=== PATIENT | female | born 1965 | race Caucasian/White ===

== ENCOUNTER 2018-07-10 00:02 | Emergency (ER) | payer OTHER ==
[~2018-07-10] VITALS: Ht 170.2 cm; Wt 80.3 kg
--- NOTE | 2018-07-10 00:06 | ED.ADGEN ---
Adult General Chief Complaint Chief Complaint ".. I was just watching TV... and got this really bad pain in my stomach.. and chest..." HPI HPI Patient is a 52 year old female who presents with above hx and complaints epigastric and right upper quadrant pain. Has rebound to epigastric area. No psoas sign. Patient did have some high fat meals today consisting of quiche and pizza at 2100 hrs. a previous history of gallbladder disease. No previous history of gastritis or irritable bowel. She denies any history of dark or tarry stools. No history of travel. No history of specific ill contacts. Review of Systems Review of Systems Constitutional: Denies fever or chills [] Eyes: Denies change in visual acuity, redness, or eye pain [] HENT: Denies nasal congestion or sore throat [] Respiratory: Denies cough or shortness of breath [] Cardiovascular: No additional information not addressed in HPI [] GI: Complaints of epigastric abdominal pain, nausea,. Denies vomiting, bloody stools or diarrhea [] : Denies dysuria or hematuria [] Musculoskeletal: Denies back pain or joint pain [] Integument: Denies rash or skin lesions [] Neurologic: Denies headache, focal weakness or sensory changes [] Endocrine: Denies polyuria or polydipsia [] All other systems were reviewed and found to be within normal limits, except as documented in this note. Family History Family History Noncontributory Current Medications Current Medications Current Medications Medications (Trade) Dose Ordered Sig/Cong Start Time Stop Time Status Last Admin Dose Admin Cephalexin HCl (Keflex) 250 mg STK-MED ONCE 07/10/18 05:24 07/10/18 05:39 DC Famotidine (Pepcid Vial) 20 mg 1X ONCE 07/10/18 00:45 07/10/18 00:46 DC 07/10/18 00:56 20 MG Info (Do NOT chart on this entry -- for MONITORING) 1 each PRN DAILY PRN 07/10/18 02:00 07/10/18 05:39 DC Iohexol (Omnipaque 240 Mg/ml) 30 ml 1X ONCE 07/10/18 01:45 07/10/18 01:48 DC 07/10/18 03:41 30 ML Iohexol (Omnipaque 300 Mg/ml) 75 ml 1X ONCE 07/10/18 01:45 07/10/18 01:48 DC 07/10/18 03:40 75 ML Ketorolac Tromethamine (Toradol 30mg Vial) 30 mg 1X ONCE 07/10/18 00:45 07/10/18 00:46 DC 07/10/18 00:45 30 MG Lactated Ringer's 1,000 ml @ 1,000 mls/hr Q1H 07/10/18 00:30 07/10/18 01:29 DC 07/10/18 00:56 1,000 MLS/HR Magnesium Hydroxide (Milk Of Magnesia) 2,400 mg 1X ONCE 07/10/18 00:45 07/10/18 00:46 DC 07/10/18 00:56 2,400 MG Morphine Sulfate (Morphine 10mg Syringe) 10 mg 1X ONCE 07/10/18 00:45 07/10/18 00:46 DC Ondansetron HCl (Zofran) 8 mg 1X ONCE 07/10/18 00:45 07/10/18 00:46 DC 07/10/18 00:56 8 MG Allergies Allergies Allergies Coded Allergies Type Severity Reaction Last Updated Verified No Known Drug Allergies 07/10/18 No Physical Exam Physical Exam Constitutional: Moderately acute distress, non-toxic appearance. [] HENT: Normocephalic, atraumatic, bilateral external ears normal, oropharynx moist, no oral exudates, nose normal. [] Eyes: PERRLA, EOMI, conjunctiva normal, no discharge. [] Neck: Normal range of motion, no tenderness, supple, no stridor. [] Cardiovascular: Tachycardia Heart rate regular rhythm, no murmur [] Lungs & Thorax: Bilateral breath sounds clear to auscultation [] Abdomen: Bowel sounds decreased, soft, epigastric and right upper quadrant tenderness, no masses, no pulsatile masses. [] Skin: Warm, dry, no erythema, no rash. [] Back: No tenderness, no CVA tenderness. [] Extremities: No tenderness, no cyanosis, no clubbing, ROM intact, no edema. [] Psoas sign. Negative Neurologic: Alert and oriented X 3, normal motor function, normal sensory function, no focal deficits noted. [] Psychologic: Affect anxious, judgement normal, mood normal. [] Current Patient Data Vital Signs Vital Signs Date Time Temp Pulse Resp B/P (MAP) Pulse Ox O2 Delivery O2 Flow Rate FiO2 07/10/18 04:28 88 20 120/60 (80) 94 Room Air 07/10/18 00:29 97.6 Lab Results Laboratory Tests Test 07/10/18 00:15 07/10/18 00:50 07/10/18 02:10 White Blood Count 6.8 x10^3/uL (4.0-11.0) Red Blood Count 4.74 x10^6/uL (3.50-5.40) Hemoglobin 13.8 g/dL (12.0-15.5) Hematocrit 41.3 % (36.0-47.0) Mean Corpuscular Volume 87 fL (79-100) Mean Corpuscular Hemoglobin 29 pg (25-35) Mean Corpuscular Hemoglobin Concent 33 g/dL (31-37) Red Cell Distribution Width 13.9 % (11.5-14.5) Platelet Count 195 x10^3/uL (140-400) Neutrophils (%) (Auto) 61 % (31-73) Lymphocytes (%) (Auto) 30 % (24-48) Monocytes (%) (Auto) 8 % (0-9) Eosinophils (%) (Auto) 1 % (0-3) Basophils (%) (Auto) 0 % (0-3) Neutrophils # (Auto) 4.2 x10^3uL (1.8-7.7) Lymphocytes # (Auto) 2.0 x10^3/uL (1.0-4.8) Monocytes # (Auto) 0.5 x10^3/uL (0.0-1.1) Eosinophils # (Auto) 0.1 x10^3/uL (0.0-0.7) Basophils # (Auto) 0.0 x10^3/uL (0.0-0.2) Sodium Level 143 mmol/L (136-145) Potassium Level 3.4 mmol/L (3.5-5.1) L Chloride Level 104 mmol/L (98-107) Carbon Dioxide Level 31 mmol/L (21-32) Anion Gap 8 (6-14) Blood Urea Nitrogen 15 mg/dL (7-20) Creatinine 0.9 mg/dL (0.6-1.0) Estimated GFR (Cockcroft-Gault) 66.0 Glucose Level 116 mg/dL (70-99) H Calcium Level 8.8 mg/dL (8.5-10.1) Magnesium Level 1.9 mg/dL (1.8-2.4) Total Bilirubin 0.3 mg/dL (0.2-1.0) Direct Bilirubin 0.1 mg/dL (0.0-0.2) Aspartate Amino Transferase (AST) 33 U/L (15-37) Alanine Aminotransferase (ALT) 39 U/L (14-59) Alkaline Phosphatase 62 U/L (46-116) Creatine Kinase 76 U/L (26-192) Troponin I Quantitative < 0.017 ng/mL (0-0.055) ZY-[id number]-Type Natriuretic Peptide 39 pg/mL (0-124) Total Protein 6.9 g/dL (6.4-8.2) Albumin 3.4 g/dL (3.4-5.0) Amylase Level 43 U/L (25-115) Lipase 298 U/L (73-393) Urine Collection Type Unknown Urine Color Yellow Urine Clarity Clear Urine pH 7.0 Urine Specific [place] 1.020 Urine Protein Neg (NEG-TRACE) Urine Glucose (UA) Neg mg/dL (NEG) Urine Ketones (Stick) Neg mg/dL (NEG) Urine Blood Neg (NEG) Urine Nitrite Neg (NEG) Urine Bilirubin Neg (NEG) Urine Urobilinogen Dipstick 0.2 mg/dL (0.2 mg/dL) Urine Leukocyte Esterase Mod (NEG) Urine RBC Occ /HPF (0-2) Urine WBC 5-10 /HPF (0-4) Urine Squamous Epithelial Cells Few /LPF Urine Bacteria Few /HPF (0-FEW) Urine Mucus Slight /LPF Urine Opiates Screen Neg (NEG) Urine Methadone Screen Neg (NEG) Urine Barbiturates Neg (NEG) Urine Phencyclidine Screen Neg (NEG) Urine Amphetamine/Methamphetamine Neg (NEG) Urine Benzodiazepines Screen Neg (NEG) Urine Cocaine Screen Neg (NEG) Urine Cannabinoids Screen Neg (NEG) Urine Ethyl Alcohol Neg (NEG) Prothrombin Time 10.3 SEC (9.4-11.4) Prothrombin Time INR 1.0 (0.9-1.1) PTT 24 SEC (23-33) D-Dimer (Stefanei) 0.30 mg/L (0.00-0.50) EKG EKG My interpretation EKG shows a sinus rhythm at 93 bpm. Some nonspecific anterior septal changes. No findings acute STEMI of contralateral changes[] Radiology/Procedures Radiology/Procedures My interpretation of abdomen film shows no free air under the diaphragm. Increased stool throughout the colon. Nonobstructive bowel gas pattern. My interpretation CT shows gallstone. And a left adnexal cyst. No clicking of gallbladder wall. Appendix noninflamed. See formal report when available[] Course & Med Decision Making Course & Med Decision Making Pertinent Labs and Imaging studies reviewed. (See chart for details) Patient to stay on a clear fluid diet only for the next 48 hours. No solids or milk products must allow bowel rest. Take Tylenol and ibuprofen for pain. For marked pain may take Vicoprofen. Or hydrocodone up to 4 times a day. Patient take Zantac 150 mg twice a day. Patient take Keflex 500 mg 3 times a day for UTI. Patient follow-up primary care. Return pain outpatient ultrasound study for biliary colic and follow-up left cyst. Return if any concerns. Must follow- up. Avoid high fat diet. [] Final Impression Final Impression 1. Epigastric and Rt. upper quadrant Abd. Pain[] 2. Biliary colic- Gall Stones 3. UTI Dragon Disclaimer Dragon Disclaimer This electronic medical record was generated, in whole or in part, using a voice recognition dictation system. Discharge Summary Visit Information Final Diagnosis Problems Medical Problems: (1) Biliary colic Status: Acute Brief Hospital Course Allergies Allergies Coded Allergies Type Severity Reaction Last Updated Verified No Known Drug Allergies 07/10/18 No Vital Signs Vital Signs Date Time Temp Pulse Resp B/P (MAP) Pulse Ox O2 Delivery O2 Flow Rate FiO2 07/10/18 04:28 88 20 120/60 (80) 94 Room Air 07/10/18 00:29 97.6 Lab Results Laboratory Tests Test 07/10/18 00:15 07/10/18 00:50 07/10/18 02:10 White Blood Count 6.8 x10^3/uL (4.0-11.0) Red Blood Count 4.74 x10^6/uL (3.50-5.40) Hemoglobin 13.8 g/dL (12.0-15.5) Hematocrit 41.3 % (36.0-47.0) Mean Corpuscular Volume 87 fL (79-100) Mean Corpuscular Hemoglobin 29 pg (25-35) Mean Corpuscular Hemoglobin Concent 33 g/dL (31-37) Red Cell Distribution Width 13.9 % (11.5-14.5) Platelet Count 195 x10^3/uL (140-400) Neutrophils (%) (Auto) 61 % (31-73) Lymphocytes (%) (Auto) 30 % (24-48) Monocytes (%) (Auto) 8 % (0-9) Eosinophils (%) (Auto) 1 % (0-3) Basophils (%) (Auto) 0 % (0-3) Neutrophils # (Auto) 4.2 x10^3uL (1.8-7.7) Lymphocytes # (Auto) 2.0 x10^3/uL (1.0-4.8) Monocytes # (Auto) 0.5 x10^3/uL (0.0-1.1) Eosinophils # (Auto) 0.1 x10^3/uL (0.0-0.7) Basophils # (Auto) 0.0 x10^3/uL (0.0-0.2) Sodium Level 143 mmol/L (136-145) Potassium Level 3.4 mmol/L (3.5-5.1) Chloride Level 104 mmol/L (98-107) Carbon Dioxide Level 31 mmol/L (21-32) Anion Gap 8 (6-14) Blood Urea Nitrogen 15 mg/dL (7-20) Creatinine 0.9 mg/dL (0.6-1.0) Estimated GFR (Cockcroft-Gault) 66.0 Glucose Level 116 mg/dL (70-99) Calcium Level 8.8 mg/dL (8.5-10.1) Magnesium Level 1.9 mg/dL (1.8-2.4) Total Bilirubin 0.3 mg/dL (0.2-1.0) Direct Bilirubin 0.1 mg/dL (0.0-0.2) Aspartate Amino Transf (AST/SGOT) 33 U/L (15-37) Alanine Aminotransferase (ALT/SGPT) 39 U/L (14-59) Alkaline Phosphatase 62 U/L (46-116) Creatine Kinase 76 U/L (26-192) Troponin I Quantitative < 0.017 ng/mL (0-0.055) HR-Xdy-N-Type Natriuretic Peptide 39 pg/mL (0-124) Total Protein 6.9 g/dL (6.4-8.2) Albumin 3.4 g/dL (3.4-5.0) Amylase Level 43 U/L (25-115) Lipase 298 U/L (73-393) Urine Collection Type Unknown Urine Color Yellow Urine Clarity Clear Urine pH 7.0 Urine Specific [place] 1.020 Urine Protein Neg (NEG-TRACE) Urine Glucose (UA) Neg mg/dL (NEG) Urine Ketones (Stick) Neg mg/dL (NEG) Urine Blood Neg (NEG) Urine Nitrite Neg (NEG) Urine Bilirubin Neg (NEG) Urine Urobilinogen Dipstick 0.2 mg/dL (0.2 mg/dL) Urine Leukocyte Esterase Mod (NEG) Urine RBC Occ /HPF (0-2) Urine WBC 5-10 /HPF (0-4) Urine Squamous Epithelial Cells Few /LPF Urine Bacteria Few /HPF (0-FEW) Urine Mucus Slight /LPF Urine Opiates Screen Neg (NEG) Urine Methadone Screen Neg (NEG) Urine Barbiturates Neg (NEG) Urine Phencyclidine Screen Neg (NEG) Urine Amphetamine/Methamphetamine Neg (NEG) Urine Benzodiazepines Screen Neg (NEG) Urine Cocaine Screen Neg (NEG) Urine Cannabinoids Screen Neg (NEG) Urine Ethyl Alcohol Neg (NEG) Prothrombin Time 10.3 SEC (9.4-11.4) Prothromb Time International Ratio 1.0 (0.9-1.1) Activated Partial Thromboplast Time 24 SEC (23-33) D-Dimer (Stefanie) 0.30 mg/L (0.00-0.50) Brief Hospital Course Ms. Luevano is a 52 old female who presented with a colic and UTI Discharge Information Condition at Discharge: Improved, Stable Disposition/Orders: D/C to Home Dischare Medications Current Medications Ketorolac Tromethamine (Toradol 30mg Vial) 30 mg STK-MED ONCE .ROUTE ; Start at 00:26; Stop 07/10/18 at 00:27; Status DC Ketorolac Tromethamine (Toradol 30mg Vial) 30 mg 1X ONCE IV Last administered on 07/10/18at 00:45; Admin Dose 30 MG; Start 07/10/18 at 00:45; Stop 07/10/18 at 00:46; Status DC Lactated Ringer's 1,000 ml @ 1,000 mls/hr Q1H IV Last administered on at 00:56; Admin Dose 1,000 MLS/HR; Start 07/10/18 at 00:30; Stop 07/10/18 at 01:29; Status DC Famotidine (Pepcid Vial) 20 mg 1X ONCE IVP Last administered on 07/10/18at 00: 56; Admin Dose 20 MG; Start 07/10/18 at 00:45; Stop 07/10/18 at 00:46; Status DC Morphine Sulfate (Morphine 10mg Syringe) 10 mg 1X ONCE SQ ; Start 07/10/18 at 00:45; Stop 07/10/18 at 00:46; Status DC Ondansetron HCl (Zofran) 8 mg 1X ONCE IV Last administered on 07/10/18at 00:56 ; Admin Dose 8 MG; Start 07/10/18 at 00:45; Stop 07/10/18 at 00:46; Status DC Magnesium Hydroxide (Milk Of Magnesia) 2,400 mg 1X ONCE PO Last administered on 07/10/18at 00:56; Admin Dose 2,400 MG; Start 07/10/18 at 00:45; Stop 07/10/18 at 00:46; Status DC Iohexol (Omnipaque 240 Mg/ml) 30 ml 1X ONCE PO Last administered on 07/10/18at 03:41; Admin Dose 30 ML; Start 07/10/18 at 01:45; Stop 07/10/18 at 01:48; Status DC Iohexol (Omnipaque 300 Mg/ml) 75 ml 1X ONCE IV Last administered on 07/10/18at 03:40; Admin Dose 75 ML; Start 07/10/18 at 01:45; Stop 07/10/18 at 01:48; Status DC Info (Do NOT chart on this entry -- for MONITORING) 1 each PRN DAILY PRN MC SEE COMMENTS; Start 07/10/18 at 02:00; Stop 07/10/18 at 05:39; Status DC Cephalexin HCl (Keflex) 500 mg 1X ONCE PO Last administered on 07/10/18at 05:28 ; Admin Dose 500 MG; Start 07/10/18 at 05:15; Stop 07/10/18 at 05:39; Status DC Cephalexin HCl (Keflex) 250 mg STK-MED ONCE .ROUTE ; Start 07/10/18 at 05:24; Stop 07/10/18 at 05:39; Status DC Active Scripts Active Zantac (Ranitidine Hcl) 150 Mg Tablet 150 Mg PO BID 30 Days Vicodin 5-300 Mg Tablet (Hydrocodone Bit/Acetaminophen) 1 Each Tablet 1 Each PO QIDPRN PRN Keflex (Cephalexin) 500 Mg Capsule 500 Mg PO TID 7 Days Dragon Disclaimer This chart was dictated in whole or in part using Voice Recognition software in a busy, high-work load, and often noisy Emergency Department environment. It may contain unintended and wholly unrecognized errors or omissions. NANDO GARCIA MD Jul 10, 2018 00:06
[2018-07-10] MEDS ORDERED: KETOROLAC 30 MG/ML VIAL. ONE (00:26)
[2018-07-10] MEDS ORDERED: IV RINGERS SOLUTION,LACTATED 1,000 ML IV SCH (00:30)
[2018-07-10] MEDS ORDERED: MAGNESIUM HYDROXIDE 2,400 MG/30 ML ORAL.SUSP. PO ONE (00:45)
[2018-07-10] MEDS ORDERED: KETOROLAC 30 MG/ML VIAL. IV ONE (00:45)
[2018-07-10] MEDS ORDERED: FAMOTIDINE 20 MG/2 ML VIAL IVP ONE (00:45)
[2018-07-10] MEDS ORDERED: ONDANSETRON PF 4 MG/2 ML VIAL. IV ONE (00:45)
[2018-07-10] MEDS ORDERED: MORPHINE SULFATE 10 MG/ML SYRINGE. SQ ONE (00:45)
[2018-07-10 00:48] LABS: BASO % 0 % (0-3); EOS # 0.1 x10^3/uL (0.0-0.7); EOS % 1 % (0-3); HEMATOCRIT 41.3 % (36.0-47.0); HEMOGLOBIN 13.8 g/dL (12.0-15.5); LYMPH % 30 % (24-48); MEAN CORPUSCULAR HEMOGLOBIN 29 pg (25-35); MEAN CORPUSCULAR HGB CONC 33 g/dL (31-37); MEAN CORPUSCULAR VOLUME 87 fL (79-100); MONO # 0.5 x10^3/uL (0.0-1.1); MONO % 8 % (0-9); NEUT # 4.2 x10^3uL (1.8-7.7); NEUT % 61 % (31-73); PLATELET COUNT 195 x10^3/uL (140-400); RED BLOOD COUNT 4.74 x10^6/uL (3.50-5.40); RED CELL DISTRIBUTION WIDTH 13.9 % (11.5-14.5); WHITE BLOOD COUNT 6.8 x10^3/uL (4.0-11.0)
[2018-07-10 01:00] LABS: ALBUMIN 3.4 g/dL (3.4-5.0); CALCIUM 8.8 mg/dL (8.5-10.1); CREATININE 0.9 mg/dL (0.6-1.0); DIRECT BILIRUBIN 0.1 mg/dL (0.0-0.2); MAGNESIUM 1.9 mg/dL (1.8-2.4); POTASSIUM 3.4 mmol/L (3.5-5.1); TOTAL BILIRUBIN 0.3 mg/dL (0.2-1.0); TOTAL PROTEIN 6.9 g/dL (6.4-8.2)
[2018-07-10 01:23] LABS: BARBITURATES NEG (NEG); BENZODIAZEPINES NEG (NEG); CANNABINOIDS NEG (NEG); COCAINE NEG (NEG); METHADONE NEG (NEG); OPIATES NEG (NEG); PHENCYCLIDINE NEG (NEG)
[2018-07-10 01:27] LABS: AMPHETAMINE/METHAMPHETAMINE NEG (NEG)
[2018-07-10] MEDS ORDERED: IOHEXOL 300 MG/ML 75 ML VIAL. IV ONE (01:45)
[2018-07-10] MEDS ORDERED: IOHEXOL 240 MG/ML 50ML VIAL. PO ONE (01:45)
[2018-07-10 01:58] LABS: BILIRUBIN,URINE NEG (NEG); CLARITY,URINE CLEAR; COLOR,URINE YELLOW; GLUCOSE,URINE NEG (NEG); NITRITE,URINE NEG (NEG); UROBILINOGEN,URINE 0.2 mg/dL (0.2 mg/dL)
[2018-07-10 01:59] LABS: BACTERIA,URINE FEW /HPF (0-FEW); RBC,URINE OCC /HPF (0-2); SQUAMOUS EPITHELIAL CELL,UR FEW /LPF
[2018-07-10] MEDS ORDERED: CONTRAST GIVEN MC PRN (02:00)
--- NOTE | 2018-07-10 04:25 | RAD ---
INDICATION: Omni 300, 75ml IV. Abdominal pain, epigastric pain. Hx ablation COMPARISON: None. TECHNIQUE: Axial CT images obtained through the abdomen and pelvis with contrast. One or more of the following individualized dose reduction techniques were utilized for this examination: 1. Automated exposure control; 2. Adjustment of the mA and/or kV according to patient size; 3. Use of iterative reconstruction technique. FINDINGS: Abdominal aorta not aneurysmal. Gallstone. No peripancreatic fluid collection. Spleen unremarkable. No left-sided hydronephrosis. Minimal urine within the bladder at time of exam. Mild prominence right extrarenal pelvis. Suspected cystic lesion right adnexa measuring up to 29 mm. Colonic diverticulosis is suspected. No periappendiceal inflammation. No dilated loops of bowel to suggest obstruction. Degenerative changes of spine. IMPRESSION: 1. There is suspected gallstone. 2. Suspected cystic lesion right adnexa. If more complete characterization is desired ultrasound could better evaluate. Electronically signed by: Bola Mehta MD (07/10/2018 4:22 AM) [id number]
[2018-07-10 04:28] VITALS: BP 120/60
[2018-07-10] MEDS ORDERED: CEPHALEXIN 250 MG CAPSULE PO ONE (05:15)
[2018-07-10] MEDS ORDERED: HYDR1TAB13 PO (05:21)
[2018-07-10] MEDS ORDERED: RANI150T21 PO (05:21)
[2018-07-10] MEDS ORDERED: CEPH-264 PO (05:21)
[2018-07-10] MEDS ORDERED: CEPHALEXIN 250 MG CAPSULE ONE (05:24)
--- NOTE | 2018-07-10 06:13 | EKG ---
[address] [address] Test Date: 2018-07-10 Test Time: 01:19:09 Pat Name: KAYE BETTS Department: Room: Gender: F Utilization Supervisor: KASI : 1965 Requested By: NANDO GARCIA Order Number: [id number] Reading MD: Mathew Jones MD Measurements Intervals [place] Rate: 93 P: 54 HI: 186 QRS: 61 QRSD: 88 T: 49 QT: 354 QTc: 443 Interpretive Statements SINUS RHYTHM Electronically Signed On 07-15-2018 14:47:44 CDT by Mathew Jones MD
--- NOTE | 2018-07-10 08:16 | RAD ---
Acute Abdominal Series: Technique: PA view of the chest and supine and upright views of the abdomen were obtained. History: Chest and epigastric pain and abdominal pain. Comparison: None. Findings: The lungs and pleural margins are clear. There is air and stool scattered the colon. There is a paucity small bowel gas. There is no free air. Impression: Nonobstructive bowel gas pattern consistent with mild constipation.. Electronically signed by: Nikolai Davis III, MD (07/10/2018 8:13 AM) [facility]
== END 2018-07-10 05:27 | disposition home or self-care (01) ==
LOC: ER 00:02
DX: K80.50 Calculus of bile duct without cholangitis or cholecystitis without obstruction (principal); K80.80 Other cholelithiasis without obstruction; N39.0 Urinary tract infection, site not specified
CPT/HCPCS: 36415; 74022; 74177; 80048; 80076; 80307; 81001; 82150; 82550; 83690; 83735; 83880; 84443; 84484; 85025; 85379; 85610; 85730; 87086; 93005; 96374; 96375; 99285; J1885; J2405; J3490; J7120; Q9966; Q9967

== ENCOUNTER 2019-03-01 20:46 | Emergency (ER) | payer OTHER ==
[~2019-03-01] VITALS: Ht 170.2 cm; Wt 81.0 kg
[~2019-03-01 20:46] MED LIST: CEPH-264 PO; HYDR1TAB13 PO; RANI-376 PO
[2019-03-01] MEDS ORDERED: IV NORMAL SALINE 1,000ML 1,000 ML IV SCH (21:10)
--- NOTE | 2019-03-01 21:10 | PHYS DOC ---
Past History Past Medical History: Hypotension, Other Past Surgical History: Other Alcohol Use: Occasionally Drug Use: None Adult General Chief Complaint Chief Complaint: POST-OP PROBLEM HPI HPI Patient is a 53-year-old female who presents to the emergency department for evaluation. She was seen in this emergency department several months ago with biliary colic. In the course of evaluating her gallbladder, patient was found to have some tumors on her ovaries, and the thrust of her evaluation were shifted to evaluate for the possibility of ovarian cancer. After testing, it was felt t hat her findings were not likely to be related to cancer, but she underwent a laparoscopic right oophorectomy and salpingectomy yesterday, at an outpatient surgery center. She did well today, taking hydrocodone prescribed for pain, every 4 hours on the clock, and was mobile, but this evening, she began experiencing some increasing weakness, fatigue, nausea, and bloating and fullnes s in her abdomen. She she's had nausea but no vomiting. She denies any black or bloody stools, chest pain, or shortness of breath. There are no alleviating or exacerbating factors to her symptoms. The patient's symptoms began about 2-3 hours after her most recent dose of hydrocodone. Review of Systems Review of Systems Constitutional: Denies fever or chills [] Eyes: Denies change in visual acuity, redness, or eye pain [] HENT: Denies nasal congestion or sore throat [] Respiratory: Denies cough or shortness of breath [] Cardiovascular: The patient denies any shortness of breath, chest pain, palpitations, or orthopnea [] GI: No additional information not addressed in HPI [] : Denies dysuria or hematuria [] Musculoskeletal: Denies back pain or joint pain [] Integument: Denies rash or skin lesions [] Neurologic: Denies headache, focal weakness or sensory changes [] Endocrine: Denies polyuria or polydipsia [] All other systems were reviewed and found to be within normal limits, except as documented in this note. Allergies Allergies Allergies Coded Allergies Type Severity Reaction Last Updated Verified No Known Drug Allergies 07/10/18 No Physical Exam Physical Exam PHYSICAL EXAM: CONSTITUTIONAL: Well developed, well nourished HEAD: normocephalic, atraumatic EENT: PERRL, EOMI. Conjunctivae normal color, sclerae non-icteric; moist mucous membranes. NECK: Supple, non-tender; no meningismus. LUNGS: Lungs CTA, breathing even and unlabored. Normal air movement. HEART: Regular rate and rhythm, no murmur CHEST: No deformity; non-tender ABDOMEN: The abdomen is soft, there is tenderness to palpation in the left upper abdomen, and mid and lower abdomen diffusely, without rebound or guarding, the right upper quadrant is nontender, Austin sign is absent, there are clean appearing laparoscopy scars on the abdomen, no masses or bruits. EXTREM: Normal ROM; no deformity, no calf tenderness. Normal pulses palpable in all extremities. There is no pedal edema. SKIN: No rash; no diaphoresis NEURO: Alert; normal speech and cognition; CN's grossly intact; strength grossly intact without focal deficit. BACK: No CVA TTP. Current Patient Data Lab Results Laboratory Tests Test 03/01/19 21:28 White Blood Count 8.2 x10^3/uL Red Blood Count 4.78 x10^6/uL Hemoglobin 13.9 g/dL Hematocrit 42.3 % Mean Corpuscular Volume 89 fL Mean Corpuscular Hemoglobin 29 pg Mean Corpuscular Hemoglobin Concent 33 g/dL Red Cell Distribution Width 14.4 % Platelet Count 175 x10^3/uL Neutrophils (%) (Auto) 70 % Lymphocytes (%) (Auto) 22 % Monocytes (%) (Auto) 7 % Eosinophils (%) (Auto) 1 % Basophils (%) (Auto) 0 % Neutrophils # (Auto) 5.7 x10^3uL Lymphocytes # (Auto) 1.8 x10^3/uL Monocytes # (Auto) 0.6 x10^3/uL Eosinophils # (Auto) 0.1 x10^3/uL Basophils # (Auto) 0.0 x10^3/uL Urine Collection Type Unknown Urine Color Yellow Urine Clarity Clear Urine pH 6.0 Urine Specific [place] 1.020 Urine Protein Neg Urine Glucose (UA) Neg mg/dL Urine Ketones (Stick) Neg mg/dL Urine Blood Trace Urine Nitrite Neg Urine Bilirubin Neg Urine Urobilinogen Dipstick 0.2 mg/dL Urine Leukocyte Esterase Neg Urine RBC Occ /HPF Urine WBC Occ /HPF Urine Squamous Epithelial Cells Occ /LPF Urine Bacteria 0 /HPF Sodium Level 141 mmol/L Potassium Level 3.9 mmol/L Chloride Level 103 mmol/L Carbon Dioxide Level 32 mmol/L Anion Gap 6 Blood Urea Nitrogen 18 mg/dL Creatinine 0.8 mg/dL Estimated GFR (Cockcroft-Gault) 75.3 BUN/Creatinine Ratio 23 Glucose Level 97 mg/dL Calcium Level 8.7 mg/dL Total Bilirubin 0.2 mg/dL Aspartate Amino Transf (AST/SGOT) 18 U/L Alanine Aminotransferase (ALT/SGPT) 28 U/L Alkaline Phosphatase 59 U/L Troponin I Quantitative < 0.017 ng/mL Total Protein 7.2 g/dL Albumin 3.7 g/dL Albumin/Globulin Ratio 1.1 Lipase 122 U/L Current Medications Medications (Trade) Dose Ordered Sig/Cong Route PRN Reason Start Time Stop Time Status Last Admin Dose Admin Sodium Chloride 1,000 ml @ 1,000 mls/hr Q1H IV 03/01/19 21:10 03/01/19 22:09 DC 03/01/19 21:41 Ondansetron HCl (Zofran) 4 mg 1X ONCE IVP 03/01/19 21:15 03/01/19 21:16 DC 03/01/19 21:41 Iohexol (Omnipaque 300 Mg/ml) 75 ml 1X ONCE IV 03/01/19 21:30 03/01/19 21:31 DC 03/01/19 21:48 EKG EKG [] Radiology/Procedures Radiology/Procedures PROCEDURE: CT ABD PELV W/ IV CONTRST ONLY PQRS Compliance statement: One or more of the following individualized dose reduction techniques were utilized for this examination: 1. Automated exposure control. 2. Adjustment of the mA and/or kV according to patient size. 3. Use of iterative reconstruction technique. Indication: Diffuse left-sided abdominal pain. TECHNIQUE: CT abdomen and pelvis with IV contrast with multiplanar reformats. COMPARISON: 07/10/2018 FINDINGS: Heart is normal in size. No pericardial or pleural effusion. Clear lung bases. Liver, spleen, pancreas, adrenals within normal limits. Gallstone noted. No pericholecystic fluid. No nephrolithiasis or hydronephrosis. No enlarged retroperitoneal or pelvic adenopathy. No free pelvic fluid or ascites. No bowel obstruction. Normal appendix. Uterus is present. Urinary bladder demonstrates no radiopaque stone. Trace pneumoperitoneum and abdominal wall emphysema. No suspicious bony lesion. IMPRESSION: Small amount of pneumoperitoneum and anterior abdominal and pelvic wall emphysema likely postsurgical. Cholelithiasis without imaging evidence of acute cholecystitis.[] Course & Med Decision Making Course & Med Decision Making Pertinent Labs and Imaging studies reviewed. (See chart for details) the patient's condition remained stable. She is feeling somewhat better at this time. I discussed test results in detail with the patient. I do suspect that she is taking a little too much hydrocodone and this is contributing to her weakness and nausea. I discussed using the medication only as needed, using [id number] analgesics as needed for mild pain, the need for close surgery follow-up and return precautions. Dragon Disclaimer Dragon Disclaimer This electronic medical record was generated, in whole or in part, using a voice recognition dictation system. Departure Departure: Impression: Primary Impression: Post-operative complication Additional Impressions: Dizziness Nausea Disposition: 01 HOME, SELF-CARE Condition: STABLE Referrals: PCP,UNKNOWN (PCP) Patient Instructions: Nausea and Vomiting Scripts Ondansetron (ONDANSETRON ODT) 4 Mg Tab.rapdis 1 TAB PO PRN Q6-8HRS for N/V, #15 TAB Prov: SONJA GERARD MD 03/01/19 Problem Qualifiers SONJA GERARD MD Mar 01, 2019 21:10
[2019-03-01] MEDS ORDERED: ONDANSETRON PF 4 MG/2 ML VIAL. IVP ONE (21:15)
[2019-03-01] MEDS ORDERED: IOHEXOL 300 MG/ML 75 ML VIAL. IV ONE (21:30)
[2019-03-01 21:46] LABS: BASO % 0 % (0-3); EOS # 0.1 x10^3/uL (0.0-0.7); EOS % 1 % (0-3); HEMATOCRIT 42.3 % (36.0-47.0); HEMOGLOBIN 13.9 g/dL (12.0-15.5); LYMPH # 1.8 x10^3/uL (1.0-4.8); LYMPH % 22 % (24-48); MEAN CORPUSCULAR HEMOGLOBIN 29 pg (25-35); MEAN CORPUSCULAR HGB CONC 33 g/dL (31-37); MEAN CORPUSCULAR VOLUME 89 fL (79-100); MONO # 0.6 x10^3/uL (0.0-1.1); MONO % 7 % (0-9); NEUT # 5.7 x10^3uL (1.8-7.7); NEUT % 70 % (31-73); PLATELET COUNT 175 x10^3/uL (140-400); RED BLOOD COUNT 4.78 x10^6/uL (3.50-5.40); RED CELL DISTRIBUTION WIDTH 14.4 % (11.5-14.5); WHITE BLOOD COUNT 8.2 x10^3/uL (4.0-11.0)
[2019-03-01 22:05] LABS: BILIRUBIN,URINE NEG (NEG); CLARITY,URINE CLEAR; COLOR,URINE YELLOW; GLUCOSE,URINE NEG (NEG); NITRITE,URINE NEG (NEG); UROBILINOGEN,URINE 0.2 mg/dL (0.2 mg/dL)
[2019-03-01 22:06] LABS: BACTERIA,URINE 0 /HPF (0-FEW); RBC,URINE OCC /HPF (0-2); SQUAMOUS EPITHELIAL CELL,UR OCC /LPF; WBC,URINE OCC /HPF (0-4)
[2019-03-01 22:14] LABS: ALBUMIN 3.7 g/dL (3.4-5.0); ALBUMIN/GLOBULIN RATIO 1.1 (1.0-1.7); CALCIUM 8.7 mg/dL (8.5-10.1); CREATININE 0.8 mg/dL (0.6-1.0); GFR 75.3; POTASSIUM 3.9 mmol/L (3.5-5.1); TOTAL BILIRUBIN 0.2 mg/dL (0.2-1.0); TOTAL PROTEIN 7.2 g/dL (6.4-8.2)
--- NOTE | 2019-03-01 22:27 | RAD ---
PQRS Compliance statement: One or more of the following individualized dose reduction techniques were utilized for this examination: 1. Automated exposure control. 2. Adjustment of the mA and/or kV according to patient size. 3. Use of iterative reconstruction technique. Indication: Diffuse left-sided abdominal pain. TECHNIQUE: CT abdomen and pelvis with IV contrast with multiplanar reformats. COMPARISON: 07/10/2018 FINDINGS: Heart is normal in size. No pericardial or pleural effusion. Clear lung bases. Liver, spleen, pancreas, adrenals within normal limits. Gallstone noted. No pericholecystic fluid. No nephrolithiasis or hydronephrosis. No enlarged retroperitoneal or pelvic adenopathy. No free pelvic fluid or ascites. No bowel obstruction. Normal appendix. Uterus is present. Urinary bladder demonstrates no radiopaque stone. Trace pneumoperitoneum and abdominal wall emphysema. No suspicious bony lesion. IMPRESSION: Small amount of pneumoperitoneum and anterior abdominal and pelvic wall emphysema likely postsurgical. Cholelithiasis without imaging evidence of acute cholecystitis. Electronically signed by: Freddie Velázquez DO (03/01/2019 10:23 PM) [facility]
[2019-03-01 22:29] VITALS: BP 127/73
[2019-03-01] MEDS ORDERED: ONDA4TAB12 PO (22:37)
--- NOTE | 2019-03-02 01:48 | EKG ---
[address] [address] Test Date: 2019-03-01 Test Time: 22:07:18 Pat Name: KAYE BETTS Department: Room: Gender: F [employer]: : 1965 Requested By: SONJA GERARD Order Number: [id number] Reading MD: Measurements Intervals Max Rate: 79 P: 37 CO: 176 QRS: 48 QRSD: 88 T: 33 QT: 354 QTc: 407 Interpretive Statements SINUS RHYTHM QRS(T) CONTOUR ABNORMALITY CONSIDER ANTEROLATERAL MYOCARDIAL DAMAGE POSSIBLY ABNORMAL ECG RI6.01 No previous ECG available for comparison
== END 2019-03-01 22:56 | disposition home or self-care (01) ==
LOC: ER 20:46
DX: K91.89 Other postprocedural complications and disorders of digestive system (principal); R42 Dizziness and giddiness; R11.0 Nausea; R10.84 Generalized abdominal pain; Z90.721 Acquired absence of ovaries, unilateral
CPT/HCPCS: 36415; 74177; 80053; 81001; 83690; 84484; 85025; 93005; 96374; 99285; J2405; Q9967; J7030